=== PATIENT | female | born 1990 | race American Indian/Alaskan Native ===

== ENCOUNTER 2024-01-27 20:44 | Emergency (ER) | payer OTHER ==
[~2024-01-27] VITALS: Ht 162.6 cm; Wt 77.1 kg
[2024-01-27 20:59] VITALS: BP_SYST 111; PULSE 77; RESP 18; TEMP 98.4; O2SAT 97
[2024-01-27 22:23] VITALS: BP_SYST 111; PULSE 77; RESP 18; TEMP 98.4; O2SAT 97
== END 2024-01-27 22:23 | disposition home or self-care (01) ==
LOC: SED 20:44
DX: S09.8XXA Other specified injuries of head, initial encounter (principal); W22.8XXA Striking against or struck by other objects, initial encounter; Y93.89 Activity, other specified; Y92.89 Other specified places as the place of occurrence of the external cause; Y99.8 Other external cause status
CPT/HCPCS: 70450-TC; 99284